=== PATIENT | male | born 1940 | race Caucasian/White ===

== ENCOUNTER 2017-04-13 11:07 | Emergency (ER) | payer MEDICARE, BC ==
[2017-04-13] MEDS ORDERED: Sodium Chloride 0.9% 10 ML Syringe FLUSH PRN (11:46)
[2017-04-13] MEDS ORDERED: Nitroglycerin 0.4 MG Tab.SL SL ONE (11:46)
[2017-04-13] MEDS ORDERED: Aspirin 81 MG Tab.Chew PO ONE (11:46)
--- NOTE | 2017-04-13 11:54 | EDM.PDOC ---
ED HPI GENERAL MEDICAL PROBLEM - General Chief Complaint: Chest Pain Stated Complaint: CHEST DISCOMFORT Time Seen by Provider: 04/13/17 11:35 Source of Information: Reports: Patient History Limitations: Reports: No Limitations - History of Present Illness INITIAL COMMENTS - FREE TEXT/NARRATIVE: Patient presents to ER today with complaints of chest pain for 7 days. Steve reports he has had chest pain to the left chest area off and on that feels like tightness. He denies pain with activity. He reports nothing makes the pain worse or better. He has also noted that at times he feels slightly winded with his daily walks with his . Onset Date: 04/06/17 Duration: Day(s): Location: Reports: Chest Quality: Reports: Other (pressure, tightness) Severity: Mild Improves with: Reports: None Worsens with: Reports: None Associated Symptoms: Denies: Cough, Diaphoresis, Fever/Chills, Headaches, Nausea /Vomiting, Syncope, Weakness - Related Data Allergies Allergy/AdvReac Type Severity Reaction Status Date / Time bee venom protein (honey bee) Allergy Confusion Verified 04/13/17 11:22 Home Meds: Home Meds Levothyroxine [Synthroid] 88 mcg PO ACBREAKFAST 07/18/16 [History] Past Medical History - Past Health History Medical/Surgical History: Denies Medical/Surgical History Endocrine/Metabolic History: Reports: Hypothyroidism - Infectious Disease History Infectious Disease History: Reports: Chicken Pox, Measles, Mumps - Past Surgical History HEENT Surgical History: Reports: Tonsillectomy Social & Family History - Tobacco Use Smoking Status *Q: Never Smoker - Caffeine Use Caffeine Use: Reports: Coffee - Recreational Drug Use Recreational Drug Use: No ED ROS GENERAL - Review of Systems Review Of Systems: See Below Constitutional: Denies: Fever, Chills, Malaise, Weakness, Fatigue, Night Sweats , Diaphoresis HEENT: Reports: No Symptoms Respiratory: Reports: Other (He reports "sometimes I feel like I am a little more winded when I go for my daily walk, but it doesn't make me stop or hurt when I breathe". ). Denies: Wheezing, Cough, Sputum Cardiovascular: Reports: Chest Pain, Dyspnea on Exertion. Denies: Blood Pressure Problem, Edema, Lightheadedness, Orthopnea, Palpitations, PND, Syncope Endocrine: Reports: Other (He reports taking his wifes levothyroxine 112mcg dose for 3 days due to not having his 88mcg with him. ). Denies: Fatigue GI/Abdominal: Reports: No Symptoms : Reports: No Symptoms Musculoskeletal: Reports: Shoulder Pain, Arm Pain, Other (He reports the chest pain radiates to his left shoulder and down left arm with sharp, tingling pain at times. He reports pain occurs most often with activity. ) Skin: Reports: No Symptoms Neurological: Denies: Dizziness, Headache, Numbness, Syncope, Trouble Speaking, Difficulty Walking, Weakness Psychiatric: Reports: No Symptoms Hematologic/Lymphatic: Reports: No Symptoms Immunologic: Reports: No Symptoms ED EXAM, GENERAL - Physical Exam Exam: See Below Exam Limited By: No Limitations General Appearance: Alert, WD/WN, No Apparent Distress Eye Exam: Bilateral Eye: Normal Inspection, PERRL Ears: Normal External Exam, Normal Canal, Hearing Grossly Normal, Normal TMs, Hearing Loss, Other (Bilateral hearing aid in place) Ear Exam: Bilateral Ear: Auricle Normal, Canal Normal, TM normal Nose: Normal Inspection, Normal Mucosa, No Blood Throat/Mouth: Normal Inspection, Normal Lips, Normal Teeth, Normal Gums, Normal Oropharynx, Normal Voice, No Airway Compromise Head: Atraumatic, Normocephalic Neck: Normal Inspection, Supple, Non-Tender, Full Range of Motion Respiratory/Chest: No Respiratory Distress, Lungs Clear, Normal Breath Sounds, No Accessory Muscle Use, Chest Non-Tender Cardiovascular: Normal Peripheral Pulses, Regular Rate, Rhythm, No Edema, No Gallop, No JVD, No Murmur, No Rub Peripheral Pulses: 2+: Brachial (L), Brachial (R), Dorsalis Pedis (L), Dorsalis Pedis (R) GI/Abdominal: Normal Bowel Sounds, Soft, Non-Tender, No Organomegaly, No Distention, No Abnormal Bruit, No Mass Back Exam: Normal Inspection, Full Range of Motion. No: CVA Tenderness (R), CVA Tenderness (L) Extremities: Normal Inspection, Normal Range of Motion, Non-Tender, No Pedal Edema, Normal Capillary Refill Neurological: Alert, Oriented, CN II-XII Intact, Normal Cognition, No Motor/ Sensory Deficits Psychiatric: Normal Affect, Normal Mood Skin Exam: Warm, Dry, Intact, Normal Color, No Rash Lymphatic: No Adenopathy EKG INTERPRETATION EKG Date: 04/13/17 Time: 12:15 Rhythm: NSR [place]: Normal P-Wave: Present QRS: Normal ST-T: Normal QT: Normal Course - Vital Signs Last Recorded V/S: Last Vital Signs Temp 36.0 C 04/13/17 11:24 Pulse 70 04/13/17 12:02 Resp 16 04/13/17 12:02 BP 107/73 04/13/17 12:02 Pulse Ox 96 04/13/17 11:24 - Orders/Labs/Meds Orders: Active Orders 24 hr Category Date Time Status Sodium Chloride 0.9% [Saline Flush] Med 04/13/17 11:46 Active 10 ml FLUSH ASDIRECTED PRN Saline Lock Insert [OM.PC] Routine Oth 04/13/17 11:46 Ordered Medication Orders Sodium Chloride (Saline Flush) 10 ml FLUSH ASDIRECTED PRN PRN Reason: Keep Vein Open Last Admin: 04/13/17 11:53 Dose: 10 ml Labs: Laboratory Tests 04/13/17 04/13/17 Range/Units 12:01 12:01 WBC 5.2 (4.5-11.0) K/uL RBC 4.89 (4.30-5.90) M/uL Hgb 14.7 (12.0-15.0) g/dL Hct 44.2 (40.0-54.0) % MCV 90 (80-98) fL MCH 30 (27-31) pg MCHC 33 (32-36) % Plt Count 194 (150-400) K/uL Neut % (Auto) 60 (36-66) % Lymph % (Auto) 27 (24-44) % [place] % (Auto) 10 H (2-6) % Eos % (Auto) 2 (2-4) % Baso % (Auto) 1 (0-1) % Sodium 139 L (140-148) mmol/L Potassium 4.3 (3.6-5.2) mmol/L Chloride 105 (100-108) mmol/L Carbon Dioxide 26 (21-32) mmol/L Anion Gap 12.3 (5.0-14.0) mmol/L BUN 18 (7-18) mg/dL Creatinine 0.9 (0.8-1.3) mg/dL Est Cr Clr Drug Dosing 69.83 mL/min Estimated GFR (MDRD) > 60 (>60) Glucose 89 (74-106) mg/dL Calcium 8.5 (8.5-10.1) mg/dL Total Bilirubin 0.6 (0.2-1.0) mg/dL AST 23 (15-37) U/L ALT 24 (12-78) U/L Alkaline Phosphatase 71 (46-116) U/L Troponin I < 0.017 (0.000-0.056) ng/mL Total Protein 6.2 L (6.4-8.2) g/dL Albumin 3.2 L (3.4-5.0) g/dL Globulin 3.0 (2.3-3.5) g/dL Albumin/Globulin Ratio 1.1 L (1.2-2.2) TSH, Ultra Sensitive 2.836 (0.358-3.740) uIU/mL Lab work reviewed. Meds: Medications Generic Name Dose Route Start Last Admin Trade Name Freq PRN Reason Stop Dose Admin Sodium Chloride 10 ml 04/13/17 11:46 04/13/17 11:53 Saline Flush FLUSH 10 ml ASDIRECTED PRN Administration Keep Vein Open Discontinued Medications Generic Name Dose Route Start Last Admin Trade Name Freq PRN Reason Stop Dose Admin Aspirin 324 mg 04/13/17 11:46 04/13/17 11:53 Aspirin PO 04/13/17 11:47 324 mg ONETIME ONE Administration Nitroglycerin 0.4 mg 04/13/17 11:46 04/13/17 11:54 Nitrostat SL 04/13/17 11:47 0.4 mg ONETIME ONE Administration - Radiology Interpretation Free Text/Narrative:: Chest x-ray shows no acute abnormality. - Re-Assessments/Exams Free Text/Narrative Re-Assessment/Exam: 04/13/17 12:47 Reviewed lab work and chest x-ray results with patient. He is advised to return at any time for further chest pain. He will take Aspirin 81 mg PO daily , and report to his primary provider within the next 7 to 14 days for recheck, possible stress test and echo. 04/13/17 13:00 Patient questions answered, he is in agreement with plan. Case reviewed with Officer. Departure - Departure Time of Disposition: 12:49 Disposition: Home, Self-Care 01 Condition: Fair Clinical Impression: Atypical chest pain Instructions: Nonspecific Chest Pain, [id number] Referrals: PCP,None [Primary Care Provider] - Forms: ED Department Discharge Additional Instructions: You have suffered from atypical chest pain. Nitro - SL did not do anything for your pain. This is most likely muscle related. You may take ibuprofen or naproxen for pain. Troponin - negative, TSH within normal limits. Your last cardiac stress test has been up to 10 years ago, and currently do not take a statin. It is in your best interest to report to your primary care provider in your home state or establish one locally to have a cardiac stress test completed. Take Aspirin 81mg PO daily. You were given Aspirin 324 mg po today in the ER, you do not need to take any today. Return at any time for further or worsening of symptoms. - Problem List Review Problem List Initiated/Reviewed/Updated: Yes - My Orders Last 24 Hours: My Active Orders 04/13/17 11:46 Sodium Chloride 0.9% [Saline Flush] 10 ml FLUSH ASDIRECTED PRN Saline Lock Insert [OM.PC] Routine - Assessment/Plan Last 24 Hours: My Active Orders 04/13/17 11:46 Sodium Chloride 0.9% [Saline Flush] 10 ml FLUSH ASDIRECTED PRN Saline Lock Insert [OM.PC] Routine Assessment:: Atypical chest pain Plan: Patient is discharged to home with instruction to take Aspirin 81ng PO daily, report to primary provider in 7 to 14 days and to return at any time for any SOB , cough, chest pain or worsening.
[2017-04-13 12:03] VITALS: BP 107/73
--- NOTE | 2017-04-13 12:20 | CR ---
Chest 1V Frontal HISTORY: chest pain COMPARISON: None FINDINGS: Portable chest, 1201 hours. Lungs appear clear and normally aerated. Cardiomediastinal silhouette is within normal limits. No va scular redistribution or pleural fluid can be seen. Bony structures and soft tissues are unremarkabl e. IMPRESSION: No acute chest abnormality identified.
== END 2017-04-13 13:03 | disposition home or self-care (01) ==
LOC: JP.ED 11:07
DX: R07.89 Other chest pain (principal); E03.9 Hypothyroidism, unspecified; Z98.890 Other specified postprocedural states; Z91.030 Bee allergy status
CPT/HCPCS: 36415; 71010; 80053; 84443; 84484; 85025; 99285; A9270; J7050; 93005; 93010; 99283